=== PATIENT | male | born 1950 | race Caucasian/White ===

== ENCOUNTER 2017-09-14 09:30 | Inpatient (IN) | payer OTHER ==
[2017-09-25 12:50] VITALS: BMI 29.9
[2017-10-04] MEDS ORDERED: MIDAZOLAM HCL 2 MG/2 ML SINGLE DOSE VIAL ONE (06:42)
[2017-10-04] MEDS ORDERED: BUPIVACAINE LIPOSOME/PF (EXPAREL) 266 MG/20 ML VIAL ONE (06:43)
[2017-10-04] MEDS ORDERED: DEXAMETHASONE SOD PHOSPHATE/PF 10 MG/ML SDV ONE (06:43)
[2017-10-04] MEDS ORDERED: BUPIVACAINE HCL/PF (5 MG/ML) 30 ML VIAL IJ ONE (06:43)
--- NOTE | 2017-10-04 07:17 | HP ---
HISTORY OF PRESENT ILLNESS Patient is a 67 y/o male with a past medical history of hypertension and osteoarthritis. Patient present for an elective right total knee replacement, today with Dr Ledesma. 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 Smoking:none Alcohol:none Drugs: none REVIEW OF SYSTEMS CONSTITUTIONAL: Absent: fever, chills, diaphoresis, generalized weakness, malaise, loss of appetite, weight change HEENT: Absent: rhinorrhea, nasal congestion, throat pain, throat swelling, difficulty swallowing, mouth swelling, ear pain, eye pain, visual changes CARDIOVASCULAR: Absent: chest pain, syncope, palpitations, irregular heart rate, lightheadedness , peripheral edema RESPIRATORY: Absent: cough, shortness of breath, dyspnea with exertion, orthopnea, wheezing, stridor, hemoptysis GASTROINTESTINAL: Absent: abdominal pain, abdominal distension, nausea, vomiting, diarrhea, constipation, melena, hematochezia GENITOURINARY: Absent: dysuria, frequency, urgency, hesitancy, hematuria, flank pain, genital pain MUSCULOSKELETAL: Present: right knee pain Absent: myalgia, arthralgia, joint swelling, back pain, neck pain SKIN: Absent: rash, itching, pallor HEMATOLOGIC/IMMUNOLOGIC: Absent: easy bleeding, easy bruising, lymphadenopathy, frequent infections ENDOCRINE: Absent: unexplained weight gain, unexplained weight loss, heat intolerance, cold intolerance NEUROLOGIC: Absent: headache, focal weakness or paresthesias, dizziness, unsteady gait, seizure, mental status changes, bladder or bowel incontinence PSYCHIATRIC: Absent: anxiety, depression, suicidal or homicidal ideation, hallucinations. PHYSICAL EXAMINATION: Vital Signs Temperature 97.5 F L 10/04/17 06:34 Pulse Rate 74 10/04/17 06:34 Respiratory Rate 16 10/04/17 06:34 Blood Pressure 128/84 10/04/17 06:34 O2 Sat by Pulse Oximetry (%) 96 10/04/17 06:42 GENERAL: Awake, alert, and fully oriented, in no acute distress. HEAD: Normal with no signs of trauma. EYES: Pupils equal, round and reactive to light, extraocular movements intact, sclera anicteric, conjunctiva clear. No lid lag. EARS, NOSE, THROAT: Ears normal, nares patent, oropharynx clear without exudates. Moist mucous membranes. NECK: Normal range of motion, supple without lymphadenopathy, JVD, or masses. LUNGS: Breath sounds equal, clear to auscultation bilaterally. No wheezes, and no crackles. No accessory muscle use. HEART: Regular rate and rhythm, normal S1 and S2 without murmur, rub or gallop. ABDOMEN: Soft, nontender, not distended, normoactive bowel sounds, no guarding, no rebound, no masses. No hepatomegaly or splenomegaly. MUSCULOSKELETAL: Normal range of motion at all joints. No bony deformities or tenderness. No CVA tenderness. UPPER EXTREMITIES: 2+ pulses, warm, well-perfused. No cyanosis. No clubbing. No peripheral edema. LOWER EXTREMITIES: 2+ pulses, warm, well-perfused. No calf tenderness. No peripheral edema. right knee, pain upon flexion and extension of the right knee NEUROLOGICAL: Cranial nerves II-XII intact. Normal speech. Normal gait. PSYCHIATRIC: Cooperative. Good eye contact. Appropriate mood and affect. SKIN: Warm, dry, normal turgor, no rashes or lesions noted, normal capillary refill. ASSESSMENT/PLAN: F/E/N - NPO in anticipation for or - replete lytes prn ppx - no ac, mechanical ac dispo: pt requires inpatient admission Problem List - Problem (1) Osteoarthritis of knee Assessment/Plan: - pending the OR today for an elective, right total knee replacement, today with Dr Ledesma Code(s): M17.10 - UNILATERAL PRIMARY OSTEOARTHRITIS, UNSPECIFIED KNEE Qualifiers: Osteoarthritis type: primary Laterality: right Qualified Code(s): M17.11 - Unilateral primary osteoarthritis, right knee (2) Hypertension Assessment/Plan: - continue amlodine, home dose - strict b/p monitoring q4h Code(s): I10 - ESSENTIAL (PRIMARY) HYPERTENSION Visit type - Case Type Case Type: Scheduled Admission - Emergency Emergency Visit: No - New patient This patient is new to me today: Yes Date on this admission: 10/04/17 - Critical Care Critical Care patient: No
[2017-10-04] MEDS ORDERED: ceFAZolin SODIUM 1 GM VIAL ONE ×2 (08:22→10:07)
[2017-10-04] MEDS ORDERED: VANCOMYCIN 1,000 MG VIAL (RESTRICTED TO ID ONLY) ONE (08:25)
[2017-10-04] MEDS ORDERED: TRANEXAMIC ACID 1000 MG/10 ML VIAL ONE ×2 (08:30→10:05)
[2017-10-04] MEDS ORDERED: ONDANSETRON 4 MG/2 ML VIAL ONE (08:48)
[2017-10-04] MEDS ORDERED: DEXAMETHASONE SOD PHOSPHATE 4 MG/1 ML VIAL ONE (08:48)
[2017-10-04] MEDS ORDERED: PROPOFOL 20 ML ONE ×2 (08:51)
[2017-10-04] MEDS ORDERED: MAG HYDROX/AL HYDROX/SIMETH 30 ML UNIT-DOSE CUP PO PRN (10:13)
[2017-10-04] MEDS ORDERED: ONDANSETRON 4 MG/2 ML VIAL IVPUSH PRN ×2 (10:13→10:51)
[2017-10-04] MEDS ORDERED: MAGNESIUM HYDROX 2400MG/30ML ORAL SUSPENSION 30 ML CUP PO PRN (10:13)
[2017-10-04] MEDS ORDERED: LACTATED RINGERS SOLUTION 1,000 ML IV SCH ×2 (10:15→11:00)
[2017-10-04] MEDS ORDERED: BENZOIN/ALOE VERA/STORAX/TOLU 58 ML BOTTLE ONE (10:20)
--- NOTE | 2017-10-04 10:29 | OP ---
Operative Note - Note: Operative Date: 10/04/17 Pre-Operative Diagnosis: OA Right Knee Operation: Right TKR Findings: Osteoarthritis tricompartment Implants: Sly Triathlon tibia6, femur5, patella symmetric 27, Poly posterior stabilized 6x9 Surgeon: Preston Ledesma Cra: Andres oRper Anesthesiologist/APPEALS ANALYST: Jemima [place] Anesthesia: Spinal Drains & Tubes with Location: 08/14 hemovac Operative Report Dictated: Yes
--- NOTE | 2017-10-04 10:47 | SURG ---
Surgery Forestry Patrolman Note Forestry Patrolman: Andres Roper PA-C Date of Service: 10/04/17 Diagnosis: OA Right Knee Procedure: Right total knee replacement I was present for the entirety of the operative procedure. For further detail, please refer to operative report. Visit type - Case Type Case Type: Scheduled Admission - New patient This patient is new to me today: Yes Date on this admission: 10/04/17
[2017-10-04] MEDS ORDERED: oxyCODONE HCL 5 MG TABLET PO PRN (10:49)
[2017-10-04] MEDS ORDERED: ACETAMINOPHEN 325 MG TABLET (FP) ONE (11:55)
[2017-10-04] MEDS: ACETAMINOPHEN 325 MG TABLET (FP) PO SCH ×2 (11:55→17:47)
[2017-10-04] MEDS: oxyCODONE HCL 5 MG TABLET PO PRN ×2 (15:48→21:18)
[2017-10-04] MEDS: CEFAZOLIN 2 GM/D5W 2 GM/50 ML ML IVPB SCH (17:48)
[2017-10-04] MEDS: oxyCODONE HCL 10 MG SUSTAINED ACTING TABLET PO SCH (21:18)
[2017-10-04] MEDS: ASCORBIC ACID 500 MG TABLET (FP) PO SCH (21:18)
[2017-10-04] MEDS: GABAPENTIN 300 MG CAPSULE (FP) PO SCH (21:18)
[2017-10-04] MEDS: ASPIRIN 325 MG TABLET PO SCH (21:18)
[2017-10-04] MEDS: SENNOSIDES/DOCUSATE COMBO (SENNA PLUS) TABLET (UD) PO SCH (21:19)
[2017-10-04] MEDS ORDERED: SENNOSIDES/DOCUSATE COMBO (SENNA PLUS) TABLET (UD) PO SCH (22:00)
[2017-10-05] MEDS: CEFAZOLIN 2 GM/D5W 2 GM/50 ML ML IVPB SCH (02:00)
[2017-10-05] MEDS: ACETAMINOPHEN 325 MG TABLET (FP) PO SCH ×4 (06:28→18:03)
[2017-10-05] MEDS: oxyCODONE HCL 5 MG TABLET PO PRN ×3 (06:30→21:33)
[2017-10-05] MEDS ORDERED: ASPIRIN 325 MG TABLET PO SCH ×2 (08:00)
[2017-10-05 08:25] LABS: HEMATOCRIT 40.5 % (35.4-49); HEMOGLOBIN 13.8 GM/dl (11.7-16.9); MCH 28.8 pg (25.7-33.7); MEAN CELL VOLUME 84.8 fl (80-96); MEAN PLT VOLUME 8.5 fl (7.5-11.1); PLATELET COUNT 202 K/MM3 (134-434); RBC 4.78 M/mm3 (4.00-5.60); RDW 13.1 % (11.9-15.9); WHITE BLOOD COUNT 17.5 K/mm3 (4.0-10.8)
[2017-10-05 08:31] LABS: ANION GAP 5 (8-16); BLOOD UREA NITROGEN 18 mg/dl (7-18); CALCIUM 8.9 mg/dl (8.4-10.2); CHLORIDE 102 mmol/L (98-107); CO2 27 mmol/L (22-28); GLUCOSE,RANDOM 134 mg/dl (74-106); POTASSIUM 4.7 mmol/L (3.5-5.1); SODIUM 134 mmol/L (136-145)
--- NOTE | 2017-10-05 08:59 | PN ---
Physical Exam: SUBJECTIVE: Patient seen and examined, reports feeling well, ambulatory throughout nursing station with a walker, reports pain to the right knee is well controlled, denies any chest pain or shortness of breath. OBJECTIVE: Patient is a 67 y/o male with a past medical history of hypertension and osteoarthritis, patient was admitted to the medical surgical unit for elective right total knee replacement. Vital Signs Period Temp Pulse Resp BP Sys/Tovar Pulse Ox Last 24 Hr 97.2 F-98.7 F 70-108 12-18 101-137/62-76 95-98 GENERAL: The patient is awake, alert, and fully oriented, in no acute distress. HEAD: Normal with no signs of trauma. EYES: PERRL, extraocular movements intact, sclera anicteric, conjunctiva clear. No ptosis. ENT: Ears normal, nares patent, oropharynx clear without exudates, moist mucous membranes. NECK: Trachea midline, full range of motion, supple. LUNGS: Breath sounds equal, clear to auscultation bilaterally, no wheezes, no crackles, no accessory muscle use. HEART: Regular rate and rhythm, S1, S2 without murmur, rub or gallop. ABDOMEN: Soft, nontender, nondistended, normoactive bowel sounds, no guarding, no rebound, no hepatosplenomegaly, no masses. EXTREMITIES: 2+ pulses, warm, well-perfused, no edema. RIGHT LOWER EXTREMITY: dressing CDI, hemovac noted, scant sangenous drainage, less than 3 second capillary refill, + 3 pedal pulse NEUROLOGICAL: Cranial nerves II through XII grossly intact. Normal speech, gait not observed. PSYCH: Normal mood, normal affect. SKIN: Warm, dry, normal turgor, no rashes or lesions noted Laboratory Results - last 24 hr 10/05/17 10/05/17 07:40 07:40 WBC 17.5 H RBC 4.78 Hgb 13.8 Hct 40.5 MCV 84.8 MCH 28.8 MCHC 34.0 RDW 13.1 Plt Count 202 MPV 8.5 Sodium 134 L Potassium 4.7 Chloride 102 Carbon Dioxide 27 Anion Gap 5 L BUN 18 Creatinine 1.0 Random Glucose 134 H Calcium 8.9 Active Medications Generic Name Dose Route Start Last Admin Trade Name Freq PRN Reason Stop Dose Admin Acetaminophen 650 mg 10/04/17 12:00 10/05/17 06:28 Tylenol - PO 10/07/17 11:59 650 mg Q6H JIM Administration Al Hydroxide/Mg Hydroxide 30 ml 10/04/17 10:13 Mylanta Oral Suspension - PO Q4H PRN DYSPEPSIA Amlodipine Besylate 5 mg 10/05/17 10:00 Norvasc - PO DAILY [facility] Ascorbic Acid 500 mg 10/04/17 22:00 10/04/17 21:18 Vitamin C - PO 500 mg BID JIM Administration Aspirin 325 mg 10/04/17 22:00 10/04/17 21:18 Asa - PO 325 mg BID [facility] Administration Aspirin 325 mg 10/05/17 08:00 Asa - PO DAILY@0800 [facility] Fentanyl 50 mcg 10/04/17 10:49 Sublimaze Injection - IVPUSH [id number] PRN PAIN-PACU ORDER X 4 DOSES ONLY Gabapentin 300 mg 10/04/17 22:00 10/04/17 21:18 Neurontin - PO 10/07/17 21:59 300 mg BID [facility] Administration Magnesium Hydroxide 30 ml 10/04/17 10:13 Milk Of Magnesia - PO PRN PRN CONSTIPATION Multivitamins/Minerals/Vitamin C 1 tab 10/05/17 10:00 Tab-A-Vit - PO DAILY [facility] Ondansetron HCl 4 mg 10/04/17 10:13 Zofran Injection IVPUSH Q6H PRN NAUSEA Oxycodone HCl 5 mg 10/04/17 10:49 Roxicodone - PO Q3H PRN PAIN LEVEL 1-5 Oxycodone HCl 10 mg 10/04/17 10:49 10/05/17 06:30 Roxicodone - PO 10 mg Q3H PRN Administration PAIN LEVEL 6-10 Oxycodone HCl 10 mg 10/04/17 22:00 10/04/17 21:18 Oxycontin - PO 10/07/17 10:50 10 mg BID [facility] Administration Pantoprazole Sodium 40 mg 10/05/17 10:00 Protonix - PO DAILY [facility] Senna/Docusate Sodium 2 tablet 10/04/17 22:00 10/04/17 21:19 Pericolace - PO 2 tablet BID [facility] Administration ASSESSMENT/PLAN: 1) MS s/p right knee replacement, POD #1 - Physical therapy as per the orthopedist - prn pain medication - hgb 13.8 stable, close monitoring 2) cardiovascular hypertension - continue amlodine b/p at goal F/E/N - low sodium diet - replete lytes prn ppx - asa as per the orthopedist - mechanical ac - protonix dispo: pt requires inpatient admission Problem List - Problems (1) Osteoarthritis of knee Code(s): M17.10 - UNILATERAL PRIMARY OSTEOARTHRITIS, UNSPECIFIED KNEE Qualifiers: Osteoarthritis type: primary Laterality: right Qualified Code(s): M17.11 - Unilateral primary osteoarthritis, right knee (2) Hypertension Code(s): I10 - ESSENTIAL (PRIMARY) HYPERTENSION Visit type - Emergency Visit Emergency Visit: Yes ED Registration Date: 10/04/17 Care time: The patient presented to the Emergency Department on the above date and was hospitalized for further evaluation of their emergent condition. - New Patient This patient is new to me today: No - Critical Care Critical Care patient: No - Discharge Referral Referred to [facility] Med P.C.: No
[2017-10-05] MEDS: ASPIRIN 325 MG TABLET PO SCH ×2 (09:13→21:33)
[2017-10-05] MEDS: PANTOPRAZOLE 40 MG TABLET (FP) PO SCH (09:13)
[2017-10-05] MEDS: ASCORBIC ACID 500 MG TABLET (FP) PO SCH ×2 (09:13→21:33)
[2017-10-05] MEDS: GABAPENTIN 300 MG CAPSULE (FP) PO SCH ×2 (09:13→21:33)
[2017-10-05] MEDS: amLODIPine BESYLATE 5 MG TABLET (FP) PO SCH (09:14)
[2017-10-05] MEDS: SENNOSIDES/DOCUSATE COMBO (SENNA PLUS) TABLET (UD) PO SCH ×2 (09:14→21:33)
[2017-10-05] MEDS: MULTIVITAMINS (DAILY MVI) TABLET (FP) PO SCH (09:14)
[2017-10-05] MEDS: oxyCODONE HCL 10 MG SUSTAINED ACTING TABLET PO SCH ×2 (09:15→21:33)
[2017-10-05] MEDS ORDERED: MULTIVITAMINS (DAILY MVI) TABLET (FP) PO SCH (10:00)
--- NOTE | 2017-10-05 11:01 | PN ---
Progress Note, Physician Chief Complaint: s/p right TKA under spinal anesthesia History of Present Illness: post op day one with peripheral nerve blocks for post op pain control - Current Medication List Current Medications: Active Medications Acetaminophen (Tylenol -) 650 mg PO Q6H [facility] Stop: 10/07/17 11:59 Last Admin: 10/05/17 06:28 Dose: 650 mg Al Hydroxide/Mg Hydroxide (Mylanta Oral Suspension -) 30 ml PO Q4H PRN PRN Reason: DYSPEPSIA Amlodipine Besylate (Norvasc -) 5 mg PO DAILY [facility] Last Admin: 10/05/17 09:14 Dose: 5 mg Ascorbic Acid (Vitamin C -) 500 mg PO BID [facility] Last Admin: 10/05/17 09:13 Dose: 500 mg Aspirin (Asa -) 325 mg PO BID [facility] Last Admin: 10/05/17 09:13 Dose: 325 mg Aspirin (Asa -) 325 mg PO DAILY@0800 [facility] Fentanyl (Sublimaze Injection -) 50 mcg IVPUSH [id number] PRN PRN Reason: PAIN-PACU ORDER X 4 DOSES ONLY Gabapentin (Neurontin -) 300 mg PO BID [facility] Stop: 10/07/17 21:59 Last Admin: 10/05/17 09:13 Dose: 300 mg Magnesium Hydroxide (Milk Of Magnesia -) 30 ml PO PRN PRN PRN Reason: CONSTIPATION Multivitamins/Minerals/Vitamin C (Tab-A-Vit -) 1 tab PO DAILY [facility] Last Admin: 10/05/17 09:14 Dose: 1 tab Ondansetron HCl (Zofran Injection) 4 mg IVPUSH Q6H PRN PRN Reason: NAUSEA Oxycodone HCl (Roxicodone -) 5 mg PO Q3H PRN PRN Reason: PAIN LEVEL 1-5 Oxycodone HCl (Roxicodone -) 10 mg PO Q3H PRN PRN Reason: PAIN LEVEL 6-10 Last Admin: 10/05/17 09:19 Dose: 10 mg Oxycodone HCl (Oxycontin -) 10 mg PO BID [facility] Stop: 10/07/17 10:50 Last Admin: 10/05/17 09:15 Dose: 10 mg Pantoprazole Sodium (Protonix -) 40 mg PO DAILY [facility] Last Admin: 10/05/17 09:13 Dose: 40 mg Senna/Docusate Sodium (Pericolace -) 2 tablet PO BID JIM Last Admin: 10/05/17 09:14 Dose: 2 tablet - Objective Vital Signs: Vital Signs Temperature 98.7 F 10/05/17 05:49 Pulse Rate 95 H 10/05/17 05:49 Respiratory Rate 18 10/05/17 05:49 Blood Pressure 117/76 10/05/17 05:49 O2 Sat by Pulse Oximetry (%) 95 10/05/17 08:17 Constitutional: Yes: Well Nourished Cardiovascular: Yes: WNL Respiratory: Yes: WNL Gastrointestinal: Yes: WNL Neurological: Yes: WNL Labs: CBC, BMP 10/05/17 07:40 10/05/17 07:40 Assessment/Plan Doing well today, pain 2/10, no nausea or vomiting, no headache, no adverse anesthetic events. Dept of anesthesia will sign off at this time.
--- NOTE | 2017-10-05 18:25 | PN ---
Progress Note (short form) - Note Progress Note: POD#1 Pt seen earlier today in the am. He had no complaints of SOB/CP or nausea. Tolerated a diet and is voiding without difficulty. Ambulated last pm. Vital Signs Period Temp Pulse Resp BP Sys/Tovar Pulse Ox Last 24 Hr 98.2 F-98.7 F 84-108 18-20 117-137/67-76 95-97 THANH-80ml serosangrenous GEN: appears comfortable, oob to chair CV: RRR Lungs: CTA b/l ABD: soft, non-distended, non-tender Right leg: dressing c/d/i LE: +2 DP pulses b/l. dorsi/plantar flexion/EHL 5/5 b/l CBC, BMP // 07:40 03//18 07:40 A/P; 67 yo male s/p Right TKR, POD#1 Doing well surgically Continue oob/ambulate/PT DVT ppx with mei/scd/asa bid Diet as tolerated D/w Dr. Ledesma
[2017-10-06] MEDS: ACETAMINOPHEN 325 MG TABLET (FP) PO SCH ×3 (00:05→13:04)
--- NOTE | 2017-10-06 08:10 | DS ---
Physical Exam: SUBJECTIVE: Patient seen and examined, ambulatory throughout nursing station with a walker, reports minimal pain to the right lower extremity, denies any chest pain or shortness of breath, denies any paresthesia to the extremity. OBJECTIVE: patient is a 67 y/o male with a past medical history of hypertension and osteoarthritis. Patient present for an elective right total knee replacement , 10/04/17, Dr Ledesma. PCP: Dr Vargas Vital Signs Temperature 98.9 F 10/06/17 03:00 Pulse Rate 92 H 10/06/17 03:00 Respiratory Rate 20 10/06/17 03:00 Blood Pressure 138/75 10/06/17 03:00 O2 Sat by Pulse Oximetry (%) 99 10/06/17 06:28 PHYSICAL EXAM GENERAL: The patient is awake, alert, and fully oriented, in no acute distress. HEAD: Normal with no signs of trauma. EYES: PERRL, extraocular movements intact, sclera anicteric, conjunctiva clear. No ptosis. ENT: Ears normal, nares patent, oropharynx clear without exudates, moist mucous membranes. NECK: Trachea midline, full range of motion, supple. LUNGS: Breath sounds equal, clear to auscultation bilaterally, no wheezes, no crackles, no accessory muscle use. HEART: Regular rate and rhythm, S1, S2 without murmur, rub or gallop. ABDOMEN: Soft, nontender, nondistended, normoactive bowel sounds, no guarding, no rebound, no hepatosplenomegaly, no masses. EXTREMITIES: 2+ pulses, warm, well-perfused, no edema. RIGHT LOWER EXTREMITY: dressing CDI, hemovac noted, scant sangenous drainage, less than 3 second capillary refill, + 3 pedal pulse NEUROLOGICAL: Cranial nerves II through XII grossly intact. Normal speech, gait not observed. PSYCH: Normal mood, normal affect. SKIN: Warm, dry, normal turgor, no rashes or lesions noted LABS CBC,CMP WBC 17.5 K/mm3 (4.0-10.8) H 10/05/17 07:40 RBC 4.78 M/mm3 (4.00-5.60) 10/05/17 07:40 Hgb 13.8 GM/dl (11.7-16.9) 10/05/17 07:40 Hct 40.5 % (35.4-49) 10/05/17 07:40 MCV 84.8 fl (80-96) 10/05/17 07:40 MCH 28.8 pg (25.7-33.7) 10/05/17 07:40 MCHC 34.0 g/dl (32.0-35.9) 10/05/17 07:40 RDW 13.1 % (11.9-15.9) 10/05/17 07:40 Plt Count 202 K/MM3 (134-434) 10/05/17 07:40 MPV 8.5 fl (7.5-11.1) 10/05/17 07:40 Sodium 134 mmol/L (136-145) L 10/05/17 07:40 Potassium 4.7 mmol/L (3.5-5.1) 10/05/17 07:40 Chloride 102 mmol/L (98-107) 10/05/17 07:40 Carbon Dioxide 27 mmol/L (22-28) 10/05/17 07:40 Anion Gap 5 (8-16) L 10/05/17 07:40 BUN 18 mg/dl (7-18) 10/05/17 07:40 Creatinine 1.0 mg/dl (0.6-1.3) 10/05/17 07:40 Random Glucose 134 mg/dl (74-106) H 10/05/17 07:40 Calcium 8.9 mg/dl (8.4-10.2) 10/05/17 07:40 HOSPITAL COURSE: The patient was admitted to the Med-Surg Unit after an elective right total knee replacement. On post operative day 1, the patient ambulated the hallways with assistance. Narcotic and non-narcotic pain management control was achieved with an oral and IV approach. POD #1, the surgical drain was removed fully intact and without incident. Patient has a past medical history of hypertension, blood pressure remained at goal, home medications was continued. Mary-operative IV ABX were administered. DVT prophylaxis was achieved with SCDs and early ambulation. The patient ambulated with Physical Therapy and patient will receive home physical therapy starting upon discharge. Narcotic scripts and or muscle relaxants were checked with [place] [employer] prior to escibe. The discharge instructions and an oral pain management plan were reviewed with the patient. All questions answered. Above plan discussed with Dr. Ledesma and agreed. Date of Admission:10/04/17 Date of Discharge: 10/06/17 Minutes to complete discharge: 45 Visit type - Case Type Case Type: Scheduled Admission - Emergency Emergency Visit: No - New patient This patient is new to me today: No - Critical Care Critical Care patient: No
[2017-10-06 08:30] LABS: BASO % 0.3 % (0-2.0); EOS % 1.1 % (0-4.5); HEMATOCRIT 37.6 % (35.4-49); HEMOGLOBIN 13.2 GM/dl (11.7-16.9); LYMPH % 21.2 % (8-40); MCHC 35.1 g/dl (32.0-35.9); MEAN CELL VOLUME 85.4 fl (80-96); MEAN PLT VOLUME 8.6 fl (7.5-11.1); MONO % 12.5 % (3.8-10.2); NEUT % 64.9 % (42.8-82.8); PLATELET COUNT 196 K/MM3 (134-434); RDW 13.3 % (11.9-15.9); WHITE BLOOD COUNT 14.2 K/mm3 (4.0-10.8)
[2017-10-06 08:50] LABS: ALBUMIN 3.3 g/dl (3.5-5.0); ALK PHOS 64 U/L (32-92); ANION GAP 5 (8-16); BILIRUBIN,TOTAL 0.6 mg/dl (0.2-1.0); BLOOD UREA NITROGEN 17 mg/dl (7-18); CALCIUM 8.7 mg/dl (8.4-10.2); CHLORIDE 103 mmol/L (98-107); CO2 28 mmol/L (22-28); GLUCOSE,RANDOM 90 mg/dl (74-106); MAGNESIUM 1.9 mg/dL (1.8-2.4); PHOSPHOROUS 2.8 mg/dl (2.5-4.6); POTASSIUM 4.1 mmol/L (3.5-5.1); SGOT/AST 19 U/L (10-42); SGPT/ALT 16 U/L (10-40); SODIUM 136 mmol/L (136-145); TOT PROT 6.2 g/dl (6.4-8.3)
[2017-10-06] MEDS: GABAPENTIN 300 MG CAPSULE (FP) PO SCH (09:21)
[2017-10-06] MEDS: PANTOPRAZOLE 40 MG TABLET (FP) PO SCH (09:21)
[2017-10-06] MEDS: amLODIPine BESYLATE 5 MG TABLET (FP) PO SCH (09:21)
[2017-10-06] MEDS: ASPIRIN 325 MG TABLET PO SCH (09:21)
[2017-10-06] MEDS: SENNOSIDES/DOCUSATE COMBO (SENNA PLUS) TABLET (UD) PO SCH (09:21)
[2017-10-06] MEDS: ASCORBIC ACID 500 MG TABLET (FP) PO SCH (09:21)
[2017-10-06] MEDS: MULTIVITAMINS (DAILY MVI) TABLET (FP) PO SCH (09:21)
[2017-10-06] MEDS: oxyCODONE HCL 10 MG SUSTAINED ACTING TABLET PO SCH (09:21)
--- NOTE | 2017-10-06 10:01 | PN ---
Progress Note (short form) - Note Progress Note: POD#2 Pt states that is pain is tolerable, oob and ambulating with PT. Tolerating a diet and voiding without difficulty. Vital Signs Period Temp Pulse Resp BP Sys/Tovar Pulse Ox Last 24 Hr 98.2 F-98.9 F 84-92 20-20 125-138/67-75 95-99 THANH-375 yesterday afternoon, 120 overnight and 40 today GEN: appears comfortable, oob to chair CV: RRR Lungs: CTA b/l Right knee: dressing c/d/i, THANH-bloody Neuro: 12/09 dorsi/plantar/EHL b/l CBC, BMP 03/02/18 07:40 03/02/18 07:40 Laboratory Tests 03//18 07:40 WBC 17.5 H Hgb 13.8 Hct 40.5 Plt Count 202 A/p: 67 yo male s/p Right knee replacement, POD#2 Thanh outpt decreased overnight, will continue to monitor oupt and if decreasing will pull drain prior to discharge cont diet as tolerated PT D/w Dr. Ledesma and the medical team
[2017-10-06 14:35] VITALS: BP 133/76; PULSE 103; TEMP 98.8
--- NOTE | 2017-10-06 14:38 | PATH ---
Surgical Pathology Report Patient Name: FRANCISCO ZAPATA Med. Rec. #: [id number] /Age/Gender: 1950 (Age: 67) / M Account: [id number] [facility] Taken: 10/04/2017 Received: 10/04/2017 Reported: 10/06/2017 Physicians: Jensen Ledesma M.D. Specimen(s) Received BONE RIGHT KNEE Clinical History Right knee osteoarthritis Final Diagnosis BONE AND SOFT TISSUE, RIGHT KNEE, REPLACEMENT: DEGENERATIVE JOINT DISEASE. Electronically Signed Ryenaldo Hernandez M.D. Gross Description Received in formalin labeled "bone right knee," is a 14.0 x 11.5 x 2.5 cm aggregate of bone and soft tissue. The tibial plateau measures 8.5 x 6.2 x 1.7 cm. There is a 1.4 cm greatest dimension area of eburnation identified. The remaining articular surface is focally granular. The underlying trabecular bone is yellow and hard. Program Director Scouting sections are submitted in one cassette, following decalcification. /10/05/201710/05/2017
== END 2017-10-06 15:10 | disposition home health service (06) | DRG 470 ==
LOC: FM/S 10-04 05:48
PROVIDERS: ADMIT Orthopaedic Surgery Adult Reconstructive Orthopaedic Surgery; ATTEND Orthopaedic Surgery Adult Reconstructive Orthopaedic Surgery
PROC: 0SRC069 Replacement of Right Knee Joint with Oxidized Zirconium on Polyethylene Synthetic Substitute, Cemented, Open Approach (ICD-10-PCS; principal; 2017-10-04 08:51)
DX: M17.11 Unilateral primary osteoarthritis, right knee (principal); I10 Essential (primary) hypertension
CPT/HCPCS: 36415; 73560-TC-RT-FY; 80048; 80053; 83735; 84100; 85025; 85027; 88304-TC; 88311-TC; 94010; 94760; 97116-GP; 97162-GP

== ENCOUNTER 2021-05-05 08:14 | Day surgery (SDC) | payer OTHER ==
[2021-05-05 08:39] VITALS: BMI 30.2
[2021-05-05] MEDS ORDERED: MIDAZOLAM HCL 2 MG/2 ML SINGLE DOSE VIAL ONE (09:15)
[2021-05-05] MEDS ORDERED: SODIUM CHLORIDE 0.9% P/F 10 ML VIAL IJ ONE (09:15)
[2021-05-05] MEDS ORDERED: BUPIVACAINE HCL/PF 0.5% (5MG/ML) 10 ML VIAL ONE (09:15)
[2021-05-05] MEDS ORDERED: BUPIVACAINE LIPOSOME/PF (EXPAREL) 266 MG/20 ML VIAL ONE (09:15)
[2021-05-05] MEDS ORDERED: ONDANSETRON 4 MG/2 ML VIAL IVPUSH PRN ×2 (09:47→14:33)
[2021-05-05] MEDS ORDERED: LACTATED RINGERS SOLUTION 1,000 ML IV SCH ×2 (10:00→14:45)
[2021-05-05] MEDS ORDERED: BUPIVACAINE HCL 50 ML ONE (10:34)
[2021-05-05] MEDS ORDERED: PROPOFOL 20 ML ONE ×4 (10:35)
[2021-05-05] MEDS ORDERED: ePHEDrine SULFATE 50 MG/1 ML AMPULE ONE ×2 (11:10)
[2021-05-05] MEDS ORDERED: BENZOIN 118 ML SPRAY.PUMP TP ONE (13:46)
[2021-05-05] MEDS ORDERED: HYDROmorphone HCL 2 MG TABLET PO PRN ×2 (14:24→17:05)
[2021-05-05] MEDS ORDERED: MAGNESIUM HYDROX 2400MG/30ML ORAL SUSPENSION 30 ML CUP PO PRN (14:33)
[2021-05-05] MEDS ORDERED: MAG HYDROX/AL HYDROX/SIMETH 30 ML UNIT-DOSE CUP PO PRN (14:33)
[2021-05-05] MEDS ORDERED: KETOROLAC TROMETHAMINE 30 MG/1 ML VIAL ONE (17:00)
[2021-05-05] MEDS ORDERED: ACETAMINOPHEN 1000 MG/100 ML VIAL (NON FORMULARY) IVPB PRN (17:02)
[2021-05-05] MEDS: oxyCODONE HCL 10 MG SUSTAINED ACTING TABLET PO SCH ×2 (17:05→21:34)
[2021-05-05] MEDS: KETOROLAC TROMETHAMINE 15 MG/ML VIAL IVPUSH SCH ×2 (17:08→23:41)
[2021-05-05] MEDS: CEFAZOLIN 2 GM in DEXTROSE 5%-WATER - 50 ML IVPB SCH (18:32)
[2021-05-05] MEDS ORDERED: REFRIGERATED ANITBIOTICS ONE (21:22)
[2021-05-05] MEDS ORDERED: RAPID SEQUENCE INTUBATION KIT NR ONE (21:23)
[2021-05-05] MEDS: SENNOSIDES/DOCUSATE COMBO (SENNA PLUS) TABLET (UD) PO SCH (21:34)
[2021-05-05] MEDS: ASPIRIN COATED 81 MG TABLET.EC PO SCH (21:34)
[2021-05-05] MEDS: oxyCODONE HCL 5 MG TABLET PO PRN (23:41)
[2021-05-06] MEDS: CEFAZOLIN 2 GM in DEXTROSE 5%-WATER - 50 ML IVPB SCH ×2 (01:00→06:19)
[2021-05-06] MEDS ORDERED: LOCK ITEM NR ONE (05:09)
[2021-05-06] MEDS: KETOROLAC TROMETHAMINE 15 MG/ML VIAL IVPUSH SCH ×2 (05:46→13:33)
[2021-05-06 07:50] LABS: HEMATOCRIT 41.2 % (35.4-49); HEMOGLOBIN 13.9 GM/dl (11.7-16.9); MCH 28.8 pg (25.7-33.7); MCHC 33.7 g/dl (32.0-35.9); MEAN CELL VOLUME 85.4 fl (80-96); MEAN PLT VOLUME 8.7 fl (7.5-11.1); PLATELET COUNT 185 10^3/uL (134-434); RBC 4.82 M/mm3 (4.00-5.60); RDW 13.5 % (11.9-15.9); WHITE BLOOD COUNT 10.2 K/mm3 (4.0-10.8)
[2021-05-06 07:51] LABS: CALCIUM 8.2 mg/dl (8.5-10); CREATININE 1.2 mg/dl (0.55-1.3)
[2021-05-06] MEDS: CELECOXIB 200 MG CAPSULE PO SCH (09:30)
[2021-05-06] MEDS: ASPIRIN COATED 81 MG TABLET.EC PO SCH ×2 (09:30→21:33)
[2021-05-06] MEDS: oxyCODONE HCL 5 MG TABLET PO PRN (09:30)
[2021-05-06] MEDS: oxyCODONE HCL 10 MG SUSTAINED ACTING TABLET PO SCH ×2 (09:31→21:32)
[2021-05-06] MEDS: PANTOPRAZOLE 40 MG TABLET PO SCH (09:32)
[2021-05-06] MEDS: SENNOSIDES/DOCUSATE COMBO (SENNA PLUS) TABLET (UD) PO SCH ×2 (09:32→21:32)
[2021-05-07] MEDS: oxyCODONE HCL 5 MG TABLET PO PRN (06:23)
[2021-05-07 08:08] LABS: HEMATOCRIT 37.9 % (35.4-49); HEMOGLOBIN 12.6 GM/dl (11.7-16.9); MCH 28.3 pg (25.7-33.7); MCHC 33.1 g/dl (32.0-35.9); MEAN CELL VOLUME 85.4 fl (80-96); MEAN PLT VOLUME 8.8 fl (7.5-11.1); PLATELET COUNT 175 10^3/uL (134-434); RBC 4.44 M/mm3 (4.00-5.60); RDW 13.4 % (11.9-15.9); WHITE BLOOD COUNT 10.9 K/mm3 (4.0-10.8)
[2021-05-07] MEDS: PANTOPRAZOLE 40 MG TABLET PO SCH (09:17)
[2021-05-07] MEDS: ASPIRIN COATED 81 MG TABLET.EC PO SCH (09:17)
[2021-05-07] MEDS: SENNOSIDES/DOCUSATE COMBO (SENNA PLUS) TABLET (UD) PO SCH (09:17)
[2021-05-07] MEDS: CELECOXIB 200 MG CAPSULE PO SCH (09:18)
[2021-05-07] MEDS: oxyCODONE HCL 10 MG SUSTAINED ACTING TABLET PO SCH (09:18)
[2021-05-07 10:35] VITALS: BP 136/78; PULSE 88; TEMP 98.6
== END 2021-05-07 14:30 | disposition home or self-care (01) ==
LOC: FASUSAT 08:14 → FM/S 14:33 → FASUSAT 05-07 14:30
PROVIDERS: ATTEND Orthopaedic Surgery Orthopaedic Surgery of the Spine
PROC: 0SRD0J9 Replacement of Left Knee Joint with Synthetic Substitute, Cemented, Open Approach (ICD-10-PCS; principal; 2021-05-05 11:43)
DX: M17.12 Unilateral primary osteoarthritis, left knee (principal)
CPT/HCPCS: 27447; C1776; 36415; 73560-TC-LT-FY; 80048; 85027; 88305-TC; 88311-TC; 94010; 94760; 97010-GP; 97116-GP; 97162-GP; J0131